=== PATIENT | female | born 1960 | race Caucasian/White ===

== ENCOUNTER 2022-12-19 12:15 | Emergency (ER) | payer OTHER ==
--- OUTSIDE RECORDS SUMMARY | 2022-12-19 12:18 | XMS REPORT | Continuity of Care Document ---
:1960 Author Organization [facility] t Address [address] [place] [address] Care Team Providers Name Role Phone [phone] Attending Clinician Unavailable [phone] Admitting Clinician Unavailable Problems This patient has no known problems. Allergies, Adverse Reactions, Alerts This patient has no known allergies or adverse reactions. Medications This patient has no known medications. Procedures This patient has no known procedures. Encounters Start End Encounter Admission Attending Care Care Encounter Source Date/Time Date/Time Type Type Clinicians Facility Department ID 2021-03-13 Outpatient 3 [id number] [facility] [id number] [facility] 11:12[facility] 2021-03-13 Outpatient 3 [id number] [facility] RE[facility] [id number] [facility] 11[facility]12:[facility] Results This patient has no known results.
[2022-12-19 13:58] LABS: SARS-CoV-2 Antigen Rapid Res Negative (Negative)
[2022-12-19 14:30] LABS: Absolute Lymphocytes (CBC) 1.5 K/uL (0.7-4.9); Hematocrit 40.3 % (36.0-45.0); Lymphocytes % 17.5 % (15.3-44.8); MCV 93.2 fL (80-100); MPV 8.6 fL (7.6-11.3); Platelets 240 thou/uL (152-406); RBC Red Blood Cell Count 4.32 M/uL (3.86-4.86)
[2022-12-19 14:31] LABS: Protime INR 1.03
[2022-12-19] MEDS ORDERED: NA CHLORIDE 0.9% 500 ML ONE (14:32)
[2022-12-19 14:42] LABS: Albumin 3.6 g/dL (3.4-5.0); Bilirubin Direct 0.2 mg/dL (0-0.2); Bilirubin Indirect, Calculated 0.4 mg/dL (0.2-0.8); Bilirubin Total 0.6 mg/dL (0.2-1.0); Potassium 3.8 mEq/L (3.5-5.1); Protein, Total 7.8 g/dL (6.4-8.2)
[2022-12-19 14:52] LABS: Specific Gravity 1.015 (1.005-1.030); Urine Bacteria None Seen /HPF (<20); Urine Bilirubin NEGATIVE (Negative); Urine Blood Negative (Negative); Urine Clarity Clear (Clear); Urine Color Yellow (Yellow); Urine Glucose NEGATIVE (Negative); Urine Mucus Slight /HPF (None Seen); Urine Protein NEGATIVE (Negative); Urine RBC <5 /HPF (None Seen); Urine Urobilinogen Normal (Normal); Urine pH 6.5 (5.0-7.0)
--- NOTE | 2022-12-19 15:27 | RAD REPORT ---
EXAM DESCRIPTION: CT - Head C Spine Cap W Con - 12/19/2022 3:08 pm CLINICAL HISTORY: Trauma, head and neck injury. Chest, abdomen and pelvis pain. repeated falls, head, back pain COMPARISON: Head Brain Wo Cont dated 06/03/2022; CT ABDOMEN PELVIS WO CONTRAST dated 05/13/2014 TECHNIQUE: CT head without contrast. CT cervical spine without contrast with coronal and sagittal reformatted images. CT chest, abdomen and pelvis with coronal and sagittal reformatted images of the spine. All CT scans are performed using dose optimization technique as appropriate and may include automated exposure control or mA/KV adjustment according to patient size. FINDINGS: CT HEAD WITHOUT CONTRAST: No intracranial hemorrhage, hydrocephalus or extra-axial fluid collection. No acute large vascular te rritory infarct. Remote left frontal and left parietal lobe small cortical infarcts are chronic. The paranasal sinuses and mastoids are clear. The calvarium is intact. CT CERVICAL SPINE WITHOUT CONTRAST: No fracture or subluxation. The prevertebral soft tissues are normal in thickness.Left carotid artery stent. Multilevel degenerat isaias changes are present in the spine. CT CHEST, ABDOMEN, PELVIS: Thorax: Chest Wall: Heterogeneous, multinodular thyroid. Lungs: Diffuse ground glass attenuation the lungs likely due to hypoventilation. Pleura: No effusions or pneumothorax. Mireya/Mediastinum: No lymphadenopathy. Aorta/Pulmonary Arteries: Unremarkable Heart: Normal size. Abdomen/Pelvis: Liver: No acute abnormality or suspicious lesions. Biliary: No biliary ductal dilatation. Cholecystectomy Stomach: No significant focal abnormality. Duodenum: No significant focal abnormality. Pancreas: Atrophic pancreas with generalized low attenuation. No pancreatic ductal dilatation. Spleen: No significant abnormality. Adrenal: No suspicious lesions. Kidney/ureter: No hydronephrosis. No renal calculi. Retroperitoneum: No retroperitoneal adenopathy. Vascular: No aneurysm. Bowel: No significant focal abnormality. Peritoneum: No ascites or free air. Bladder: Grossly unremarkable. Reproductive: Hysterectomy. Bones: Acute L4 compression fracture with less than 20% loss of height anteriorly. T12 compression fr acture with less than 20% loss of height appears chronic. Grade 1 anterolisthesis of L4 on L5. Other: n/a IMPRESSION: 1. Acute or subacute L4 compression fracture with less than 20% loss of height. Chronic appearing T12 compression fracture. No other evidence of significant trauma to the chest, abdomen, or pelvis. 2. No acute intracranial abnormality. Small remote left frontal and parietal lobe cortical infarcts. 3. No fracture or traumatic malalignment cervical spine.
--- NOTE | 2022-12-19 15:55 | EDPHYS ---
Physician Documentation [facility] Name: Catalina Uribe Age: 62 yrs Sex: Female : 1960 Arrival Date: 12/19/2022 Time: 12:15 Bed 19 Private MD: ED Physician Samuel Soto HPI: 12/19 13:41 This 62 yrs old Female presents to ER via Wheelchair with complaints of Back Pain, Fall rn Injury. 13:41 The patient presents with pain and an injury. The symptoms are located in the thoracic rn area. The pain does not radiate. Associated signs and symptoms: Pertinent positives: Generalized weakness and malaise. Modifying factors: The patient symptoms are alleviated by nothing, the patient symptoms are aggravated by any movement. Severity of symptoms: At their worst the symptoms were moderate, in the emergency department the symptoms are unchanged. The patient has experienced similar episodes in the past. Patient reports stroke 1 year ago, has had a few issues since then but over the last few weeks repeated falls. Last fall was about a week ago and fell onto her back with mid to upper back pain. Reports falls are happening so frequently she is scared to ambulate and get up and family is concerned that she is not deconditioned. Not eating or drinking well. Also reports had to stop Bactrim before completion of prescription due to side effects, was diagnosed with UTI at the time. No other medication changes.. Historical: - Allergies: 13:03 Sulfa (Sulfonamide Antibiotics); iw - PMHx: 12:56 Hypertensive disorder; stroke; iw - Immunization history:: Adult Immunizations unknown. - Family history:: not pertinent. - Social history:: Smoking status: unknown. - Hospitalizations: : No recent hospitalization is reported. ROS: 13:41 Constitutional: Negative for fever, chills, and weight loss, Eyes: Negative for injury, rn pain, redness, and discharge, Neck: Negative for injury, pain, and swelling, Cardiovascular: Negative for chest pain, palpitations, and edema, Respiratory: Negative for shortness of breath, cough, wheezing, and pleuritic chest pain, Abdomen/GI: Negative for abdominal pain, nausea, vomiting, diarrhea, and constipation, Back: Positive for back pain : Negative for injury, bleeding, discharge, and swelling, MS/Extremity: Negative for injury and deformity, Skin: Negative for injury, rash, and discoloration, Neuro: Positive for generalized weakness Exam: 13:41 Constitutional: This is a well developed, well nourished patient who is awake, alert, rn appears weak Head/Face: Normocephalic, atraumatic. Eyes: Pupils equal round and reactive to light, extra-ocular motions intact. ENT: Dry mucous membranes Neck: No midline cervical tenderness. No Meningismus. Cardiovascular: Regular rate and rhythm. No pulse deficits. Respiratory: No increased work of breathing, no retractions or nasal flaring. Abdomen/GI: Soft, non-tender Back: Lower thoracic and upper lumbar paraspinal tenderness. MS/ Extremity: Pulses equal, no cyanosis. Neuro: Awake and alert, GCS 15, 4/5 strength throughout. Sensation intact. No facial droop. Vital Signs: 13:04 BP 100 / 76; Pulse 98; Resp 18; Temp 98.8; Pulse Ox 98% on R/A; Weight 88.45 kg; Height iw 5 ft. 6 in. ; Pain 9/10; 14:00 BP 109 / 61; Pulse 77; Resp 16; Pulse Ox 100% on R/A; db 15:30 BP 113 / 63; Pulse 79; Resp 16; Pulse Ox 96% on R/A; db 16:00 BP 107 / 66; Pulse 71; Resp 16; Pulse Ox 98% on R/A; db 13:04 Body Mass Index 31.47 (88.45 kg, 167.64 cm) iw 13:04 Pain Scale: Adult iw MDM: 12:45 Patient medically screened. rn 15:51 Differential diagnosis: arthritis, chronic back pain, Fatigue Fracture Osteoarthritis rn vertebral fracture, UTI, dehydration, stroke. Data reviewed: vital signs, nurses notes, lab test result(s), EKG, radiologic studies, CT scan, and as a result, I will discharge patient. Counseling: I had a detailed discussion with the patient and/or guardian regarding the historical points, exam findings, and any diagnostic results supporting the discharge/admit diagnosis, lab results, radiology results, the need for outpatient follow up, to return to the emergency department if symptoms worsen or persist or if there are any questions or concerns that arise at home. Response to treatment: the patient's symptoms have mildly improved after treatment, and as a result, I will discharge patient. Special discussion: I discussed with the patient/guardian in detail that at this point there is no indication for admission to the hospital. It is understood, however, that if the symptoms persist or worsen the patient needs to return immediately for re-evaluation. Based on the history and exam findings, there is no indication for further emergent testing or inpatient evaluation. I discussed with the patient/guardian the need to see the neurologist for further evaluation of the symptoms. I discussed with the patient/guardian the need to see the primary care provider for further evaluation of the symptoms. ED course: CT shows subacute thoracic and lumbar fractures, nonoperative. Also showed multiple frontal strokes which explain her symptoms lately. Explained all this to patient and family and everything makes sense. Blood pressure improved with fluids. No indication for emergent admission at this time and family agrees. I have personally reviewed all of the results, including but not limited to blood tests and imaging deemed necessary to safely discharge this patient at this time. All results given to and printed out for patient. I personally went over all the results with the patient and answered all questions. Patient will follow-up with PCP and or specialist as discussed. Return precautions given and understood.. 12/19 12:52 Order name: CBC with Diff; Complete Time: 15:22 12/19 12:52 Order name: Basic Metabolic Panel; Complete Time: 15:22 12/19 12:52 Order name: Protime (+inr); Complete Time: 15:22 12/19 12:52 Order name: Ptt, Activated; Complete Time: 15:22 12/19 12:52 Order name: Urinalysis w/ reflexes; Complete Time: 15:22 12/19 12:52 Order name: LFT's; Complete Time: 15:22 12/19 12:53 Order name: SARS RAPID; Complete Time: 15:22 12/19 12:52 Order name: CT Traumagram (Head C Spine CAP W Con); Complete Time: 15:33 12/19 12:52 Order name: IV Start; Complete Time: 14:15 iw Administered Medications: 14:20 Drug: NS 0.9% IV 500 ml IV at bolus once Route: IV; Rate: bolus; Site: right db antecubital; 16:15 Follow up: IV Status: Completed infusion; IV Intake: 500ml db Disposition Summary: 12/19/22 15:54 Discharge Ordered Notes: Location: Home rn Problem: new rn Symptoms: have improved rn Condition: Stable rn Diagnosis - Wedge compression fracture of unspecified lumbar vertebra - L4 rn - Wedge compression fracture of T11-T12 vertebra rn - Dehydration rn - Weakness rn Followup: rn - With: Milo Arevalo MD - When: As needed - Reason: Recheck today's complaints, Re-evaluation by your physician Discharge Instructions: - Discharge Summary Sheet rn - Spinal Compression Fracture rn - Dehydration, Adult rn - Weakness rn - Deconditioning rn Forms: - Medication Reconciliation Form rn - Thank You Letter rn - Antibiotic operations intern - Prescription Opioid Use rn - Patient Portal Instructions rn - Leadership Thank You Letter rn Prescriptions: - acetaminophen-codeine 300-30 mg Oral tablet - take 1 tablet ORAL route every 12 hours As needed as needed for pain; 12 rn tablet; Refills: 0, Product Selection Permitted Signatures: Dispatcher [employer] Loly Rich RN RN Samuel Patel MD MD rn Benton, Danielle, RN RN db
--- NOTE | 2022-12-19 15:55 | ER ---
Nurse's Notes [facility] Name: Catalina Uribe Age: 62 yrs Sex: Female : 1960 Arrival Date: 12/19/2022 Time: 12:15 Bed 19 Private MD: Diagnosis: Wedge compression fracture of unspecified lumbar vertebra-L4;Wedge compression fracture of T11-T12 vertebra;Dehydration;Weakness Presentation: 12/19 12:55 Coronavirus screen: At this time, the client does not indicate any symptoms associated iw with coronavirus-19. Ebola Screen: Patient negative for fever greater than or equal to 101.5 degrees Fahrenheit, and additional compatible Ebola Virus Disease symptoms Patient denies exposure to infectious person. Patient denies travel to an Ebola-affected area in the 21 days before illness onset. No symptoms or risks identified at this time. Initial Sepsis Screen: Does the patient meet any 2 criteria? No. Patient's initial sepsis screen is negative. Does the patient have a suspected source of infection? No. Patient's initial sepsis screen is negative. Risk Assessment: Do you want to hurt yourself or someone else? Patient reports no desire to harm self or others. 12:55 Method Of Arrival: Wheelchair iw 12:55 Acuity: JONY 3 iw 12:57 Chief complaint: Patient states: multiple falls over past few weeks. iw Historical: - Allergies: 13:03 Sulfa (Sulfonamide Antibiotics); iw - PMHx: 12:56 Hypertensive disorder; stroke; iw - Immunization history:: Adult Immunizations unknown. - Family history:: not pertinent. - Social history:: Smoking status: unknown. - Hospitalizations: : No recent hospitalization is reported. Screenin:15 [facility] ED Fall Risk Assessment (Adult) History of falling in the last 3 months, db including since admission No falls in past 3 months (0 pts) Confusion or Disorientation No (0 pts) Intoxicated or Sedated No (0 pts) Impaired Gait No (0 pts) Mobility Assist Device Used No (0 pt) Altered Elimination No (0 pt) Score/Fall Risk Level 0 - 2 = Low Risk Oriented to surroundings, Maintained a safe environment. Abuse screen: Denies threats or abuse. Denies injuries from another. Nutritional screening: No deficits noted. Tuberculosis screening: No symptoms or risk factors identified. Assessment: 13:00 Reassessment: Patient appears in no apparent distress at this time. Patient and/or db family updated on plan of care and expected duration. Pain level reassessed. Patient is alert, oriented x 3, equal unlabored respirations, skin warm/dry/pink. General: Appears in no apparent distress. comfortable, Behavior is calm, cooperative. Pain: Complains of pain in back and thoracic area. Neuro: Level of Consciousness is awake, alert, obeys commands, Oriented to person, place, time, situation. Respiratory: Airway is patent Respiratory effort is even, unlabored, Respiratory pattern is regular, symmetrical. 14:00 Reassessment: Patient appears in no apparent distress at this time. Patient and/or db family updated on plan of care and expected duration. Pain level reassessed. Patient is alert, oriented x 3, equal unlabored respirations, skin warm/dry/pink. 15:00 Reassessment: Patient appears in no apparent distress at this time. Patient and/or db family updated on plan of care and expected duration. Pain level reassessed. Patient is alert, oriented x 3, equal unlabored respirations, skin warm/dry/pink. 16:00 Reassessment: Patient appears in no apparent distress at this time. Patient and/or db family updated on plan of care and expected duration. Pain level reassessed. Patient is alert, oriented x 3, equal unlabored respirations, skin warm/dry/pink. Patient states feeling better. Vital Signs: 13:04 BP 100 / 76; Pulse 98; Resp 18; Temp 98.8; Pulse Ox 98% on R/A; Weight 88.45 kg; Height iw 5 ft. 6 in. ; Pain 9/10; 14:00 BP 109 / 61; Pulse 77; Resp 16; Pulse Ox 100% on R/A; db 15:30 BP 113 / 63; Pulse 79; Resp 16; Pulse Ox 96% on R/A; db 16:00 BP 107 / 66; Pulse 71; Resp 16; Pulse Ox 98% on R/A; db 13:04 Body Mass Index 31.47 (88.45 kg, 167.64 cm) iw 13:04 Pain Scale: Adult iw ED Course: 12:19 Patient arrived in ED. ts1 12:45 Samuel Soto MD is Attending Physician. rn 12:55 Triage completed. iw 12:55 Arm band placed on. iw 13:39 SARS RAPID Sent. jr12 13:47 Patty Seals, RN is Primary Nurse. db 13:56 Missed attempt(s): 22 gauge in right wrist. Bleeding controlled, band aid applied, db catheter tip intact. 14:16 Inserted saline lock: 22 gauge in right antecubital area, using aseptic technique. em1 Blood collected. 15:10 CT Traumagram (Head C Spine CAP W Con) In Process Unspecified. EDMS 15:35 Patient placed in an exam room. db 15:53 Milo Arevalo MD is Referral Physician. rn 16:15 Patient has correct armband on for positive identification. Bed in low position. Call db light in reach. Side rails up X 1. Provided Education on: DISCHARGE. Pulse ox on. NIBP on. Warm blanket given. 16:15 No provider procedures requiring assistance completed. IV discontinued, intact, db bleeding controlled, No redness/swelling at site. Administered Medications: 14:20 Drug: NS 0.9% IV 500 ml IV at bolus once Route: IV; Rate: bolus; Site: right db antecubital; 16:15 Follow up: IV Status: Completed infusion; IV Intake: 500ml db Medication: 16:15 VIS not applicable for this client. db Intake: 16:15 IV: 500ml; Total: 500ml. db Outcome: 15:54 Discharge ordered by MD. rn 16:15 Discharged to home via wheelchair, with family, db 16:15 Condition: stable 16:15 Discharge instructions given to patient, family, Instructed on discharge instructions, follow up and referral plans. Prescriptions given X 1, 16:24 Patient left the ED. db Signatures: Dispatcher [employer] EDMS Loly Pratt, LOIS RN iw Samuel Soto MD MD rn Martinez, Eric em1 Patty Seals, RN RN db Carolin Allen PAS PAS ts1 Claudia Simon jr12 Corrections: (The following items were deleted from the chart) 16:22 14:00 Reassessment: Patient appears in no apparent distress at this time. Patient db and/or family updated on plan of care and expected duration. Pain level reassessed. Patient is alert, oriented x 3, equal unlabored respirations, skin warm/dry/pink. Patient states feeling better. db
[2022-12-19 16:31] VITALS: TEMP 98.8
[2022-12-19 16:36] VITALS: BP 107/66; O2SAT 98
== END 2022-12-19 16:24 | disposition home or self-care (01) ==
LOC: ER 12:15
DX: S32.040A Wedge compression fracture of fourth lumbar vertebra, initial encounter for closed fracture (principal); S22.080A Wedge compression fracture of T11-T12 vertebra, initial encounter for closed fracture; E86.0 Dehydration; I10 Essential (primary) hypertension; Z11.52 Encounter for screening for COVID-19; Z88.2 Allergy status to sulfonamides
CPT/HCPCS: 96361; 85025; 81001; 80048; 36415; 85610; 80076; 85730; 70450; 72125; 71260; 74177; 96360; 99284; 87811; Q9967; J7040

== ENCOUNTER 2024-01-06 12:34 | Emergency (ER) | payer OTHER ==
--- OUTSIDE RECORDS SUMMARY | 2024-01-06 12:36 | XMS REPORT | Continuity of Care Document ---
Author Name Unknown Address [address] [place] [address] [facility] Address [address] [place] [address] [place] [address] Care Team Providers Care Needle Loom Weaver Name Role Phone [phone] Attending Clinician Unavailable [phone] Admitting Clinician Unavailable Encounters Start Date/Time End Date/Time Encounter Type Admission Type Attending Clinicians Care Facility Care Department Encounter ID Source 2021-03-13 11:12:40 Outpatient 3 [id number] [facility] REF [id number] 1221 [facility] 2021-03-13 11:12:32 Outpatient 3 [id number] [facility] REF [id number] [id number] [facility]
[2024-01-06] MEDS ORDERED: MORPHINE 2 MG/ML SYR ONE (13:18)
[2024-01-06] MEDS ORDERED: NA CHLORIDE 0.9% 1,000 ML ONE (13:18)
[2024-01-06] MEDS ORDERED: ONDANSETRON 4 MG/2 ML VIAL ONE (13:19)
[2024-01-06 13:29] LABS: Absolute Basophils 0.1 K/uL (0-0.5); Absolute Eosinophils 0.1 K/uL (0-0.5); Absolute Lymphocytes (CBC) 1.4 K/uL (0.7-4.9); Absolute Monocytes 0.5 K/uL (0.1-1.3); Absolute Neutrophil 5.3 K/uL (1.8-8.0); Basophils % 0.8 % (0-1.3); Hematocrit 34.3 % (36.0-45.0); Hemoglobin 11.6 g/dL (12.0-15.0); Lymphocytes % 19.3 % (15.3-44.8); MCH 31.9 pg (27.0-35.0); MCHC 33.9 g/dL (32.0-36.0); MPV 8.5 fL (7.6-11.3); Monocytes % 7.4 % (3.3-12.3); Neutrophils % 71.5 % (41.7-73.7); Platelets 241 thou/uL (152-406); RBC Red Blood Cell Count 3.65 M/uL (3.86-4.86)
[2024-01-06 13:32] LABS: PT Prothrombin Time 13.5 SECONDS (9.4-12.5); Protime INR 1.21
--- NOTE | 2024-01-06 13:43 | RAD REPORT ---
EXAMINATION: ONE VIEW CHEST XR CLINICAL INDICATION: ABDOMINAL DISTENTION TECHNIQUE: Frontal chest projection is submitted. Examination is limited by patient positioning and t echnique. COMPARISON: 07/03/2023 FINDINGS: The lungs are well inflated and clear. The heart is upper limit of normal in size. No displaced fract ures identified. IMPRESSION: No acute intrathoracic abnormalities.
[2024-01-06 14:30] LABS: ALT/SGPT 48 U/L (13-56); AST/SGOT 106 U/L (15-37); Albumin 3.1 g/dL (3.4-5.0); Albumin/Globulin Ratio 0.9 (1.1-1.8); Alkaline Phosphatase 70 U/L (45-117); Anion Gap 11.4 mEq/L (5.0-15.0); BUN Blood Urea Nitrogen 13 mg/dL (7-18); Bicarbonate 20 mEq/L (21-32); Bilirubin Total 0.5 mg/dL (0.2-1.0); Globulin 3.3 g/dL (2.3-3.5); Glomerular Filtration Rate 64 ml/min (=/>90); Glucose Level 88 mg/dL (74-106); Lipase 14 U/L (13-75); Magnesium 1.7 mg/dL (1.6-2.4); NT PRO-BNP 131 pg/mL (<125); Potassium 3.4 mEq/L (3.5-5.1); Protein, Total 6.4 g/dL (6.4-8.2); Sodium Level 139 mEq/L (136-145); Troponin High Sensitivity 9.5 pg/mL (<58.9)
[2024-01-06 14:33] LABS: Bilirubin Direct < 0.2 mg/dL (0-0.2); Bilirubin Indirect, Calculated 0.3 mg/dL (0.2-0.8)
[2024-01-06] MEDS ORDERED: MUPIROCIN 2% OINT 22GM TUBE TOP ONE (15:55)
--- NOTE | 2024-01-06 16:03 | RAD REPORT ---
EXAMINATION: CT ABDOMEN AND PELVIS WITH CONTRAST CLINICAL INDICATION: RECTAL PAIN;Abd pain TECHNIQUE: CT abdomen and pelvis was performed, after the administration of IV contrast, as per [facility] protocol. Axial, sagittal and coronal reconstructions were obtained. One or more of the following dose reduction techniques were used: Automated exposure control, adjustment of the mA and k V according to patient size, and iterative reconstruction. Unless otherwise specified, incidental findings do not require dedicated imaging follow-up. COMPARISON: No prior exam. FINDINGS: LOWER CHEST: The visualized lung bases are clear. LIVER: Normal in size and contour. No focal lesion. Cholecystectomy clips. SPLEEN: Normal size. No focal lesion. PANCREAS: No mass, ductal dilation, or jimmy-pancreatic fluid. ADRENALS: Normal; no mass. KIDNEYS: Normal size and contour. No hydronephrosis. GASTROINTESTINAL TRACT: No evidence of free air, significant intra-abdominal free fluid, bowel obstru ction or abscess. APPENDIX: Normal appendix. LYMPH NODES: No lymphadenopathy. MUSCULOSKELETAL: Moderate multilevel spinal degenerative changes. 7 mm degenerative anterolisthesis L 4 on 5. Mild anterior wedging T12 and L4, likely chronic. ADDITIONAL FINDINGS: None. IMPRESSION: No acute or concerning abnormalities seen in the abdomen or pelvis.
--- NOTE | 2024-01-06 16:15 | ER ---
Nurse's Notes [facility] Name: Catalina Uribe Age: 63 yrs Sex: Female : 1960 Arrival Date: 01/06/2024 Time: 12:34 Bed 5 Private MD: Diagnosis: Diarrhea, unspecified;Other skin changes-SMALL RIGHT SUPERFICAL BUTTOCK ULCER;Other specified diseases of anus and rectum-PAIN Presentation: 01/05 12:59 Chief complaint: Patient states: sores on bottom x10 days, PCP said it was an tm6 infection, was given antibiotics, still having pain and diarrhea. Coronavirus screen: Client denies travel out of the [place] in the last 14 days. Ebola Screen: Patient negative for fever greater than or equal to 101.5 degrees Fahrenheit, and additional compatible Ebola Virus Disease symptoms Patient denies exposure to infectious person. Patient denies travel to an Ebola-affected area in the 21 days before illness onset. No symptoms or risks identified at this time. Initial Sepsis Screen: Does the patient meet any 2 criteria? RR > 20 per min. Does the patient have a suspected source of infection? No. Patient's initial sepsis screen is negative. Risk Assessment: Do you want to hurt yourself or someone else? Patient reports no desire to harm self or others. Onset of symptoms was December 27, 2023. 12:59 Method Of Arrival: Wheelchair tm6 12:59 Acuity: JONY 3 tm6 Triage Assessment: 13:01 General: Appears distressed, uncomfortable, Behavior is cooperative. Pain: Complains of tm6 pain in buttocks Pain currently is 8 out of 10 on a pain scale. Pain began ten days ago. EENT: No signs and/or symptoms were reported regarding the EENT system. Neuro: Level of Consciousness is awake, alert, obeys commands, Oriented to person, place, time, situation. Cardiovascular: Patient's skin is warm and dry. Respiratory: Airway is patent Respiratory effort is even, Respiratory pattern is regular, symmetrical. GI: Abdomen is round Reports diarrhea. : No signs and/or symptoms were reported regarding the genitourinary system. Derm: Reports sores on gluteal folds. Musculoskeletal: No signs and/or symptoms reported regarding the musculoskeletal system. Historical: - Allergies: 13:01 Adhesives; tm6 13:01 PENICILLINS; tm6 13:01 SULFA SULFONAMIDE ANTIBIOTICS; tm6 - PMHx: 13:01 Hypertensive disorder; Cerebrovascular accident; Hypercholesterolemia; Gastroesophageal tm6 reflux disease; neuropathy; - PSHx: 13:01 Total abdominal hysterectomy; section; tm6 - Immunization history:: Client reports receiving the 2nd dose of the Covid vaccine, Flu vaccine is up to date. - Infectious Disease History:: Denies. - Social history:: Smoking status: Patient denies any tobacco usage or history of. - Family history:: not pertinent. Screenin:00 [facility] ED Fall Risk Assessment (Adult) History of falling in the last 3 months, jl7 including since admission No falls in past 3 months (0 pts) Confusion or Disorientation No (0 pts) Intoxicated or Sedated No (0 pts) Impaired Gait No (0 pts) Mobility Assist Device Used Yes (1 pt) Altered Elimination No (0 pt) Score/Fall Risk Level 0 - 2 = Low Risk Oriented to surroundings, Maintained a safe environment. 13:00 Abuse screen: Denies threats or abuse. Denies injuries from another. Nutritional jl7 screening: No deficits noted. Tuberculosis screening: No symptoms or risk factors identified. Assessment: 12:45 General: Appears in no apparent distress. uncomfortable, Behavior is calm, cooperative, jl7 appropriate for age. Pain: Complains of pain in buttocks Pain currently is 8 out of 10 on a pain scale. Neuro: Level of Consciousness is awake, alert, obeys commands, Oriented to person, place, time, situation. Cardiovascular: Patient's skin is warm and dry. Respiratory: Airway is patent Respiratory effort is even, unlabored, Respiratory pattern is regular, symmetrical. GI: Reports diarrhea, nausea. Derm: Skin is pink, warm \T\ dry. 14:00 Reassessment: Patient appears in no apparent distress at this time. Patient is alert, jl7 oriented x 3, equal unlabored respirations, skin warm/dry/pink. Patient is alert/active/playful, equal unlabored respirations, skin warm/dry/pink. pain improved, rated 3/10 at this time. 14:30 Derm: Decubitus located on sacrum approximately 2.6 cm to 7.5 cm. jl7 15:30 Reassessment: Patient appears in no apparent distress at this time. No changes from jl7 previously documented assessment. Patient and/or family updated on plan of care and expected duration. Pain level reassessed. Patient is alert, oriented x 3, equal unlabored respirations, skin warm/dry/pink. 16:00 Derm: Decubitus located on sacrum, wound covered with mupirocin and optiform wound jl7 dressing. 16:35 Reassessment: Pt awaiting transportation. jl7 Vital Signs: 12:59 BP 133 / 85; Pulse 86; Resp 22; Temp 98.5(O); Pulse Ox 99% on R/A; MAP 97 mmHg; Weight tm6 79.38 kg; Height 5 ft. 3 in. ; Pain 8/10; 14:15 BP 136 / 88; Pulse 88; Resp 15; Pulse Ox 100% ; jl7 12:59 Body Mass Index 31.00 (79.38 kg, 160.02 cm) tm6 12:59 Pain Scale: Adult 6 ED Course: 12:36 Patient arrived in ED. mr 12:39 Faustino Canseco MD is Attending Physician. [facility] 13:00 Triage completed. tm6 13:00 Provided Education on: use if call zimmer. jl7 13:00 No provider procedures requiring assistance completed. jl7 13:01 Arm band placed on right wrist. tm6 13:02 Allergy band placed. tm6 13:24 Basic Metabolic Panel Sent. ss 13:24 CBC with Diff Sent. ss 13:24 LFT's Sent. ss 13:24 NT PRO-BNP Sent. ss 13:24 PT-INR Sent. ss 13:24 Troponin HS Sent. ss 13:24 Inserted saline lock: 22 gauge in right forearm, using aseptic technique. Blood ss collected. Flushed with 10 mL NS. 13:28 Adry Benitez, RN is Primary Nurse. jl7 13:40 XRAY Chest (1 view) In Process Unspecified. EDMS 15:49 CT Abd/Pelvis - IV Contrast Only In Process Unspecified. EDMS 16:15 Francisco Sewell MD is Referral Physician. [facility] 17:09 IV discontinued, intact, bleeding controlled, No redness/swelling at site. Pressure jl7 dressing applied. Administered Medications: 13:28 Drug: morphine IVP or IV 2 mg IVP once over 4 mins Route: IVP; Infused Over: 4 mins; jl7 Site: right forearm; 14:00 Follow up: Response: No adverse reaction; Pain is decreased jl7 13:28 Drug: Ondansetron IVP 4 mg IVP once; over 2 minutes Route: IVP; Site: right forearm; jl7 15:25 Follow up: Response: No adverse reaction jl7 13:28 Drug: NS 0.9% IV 1000 ml IV at 1000 ml once; to be given as a bolus over 60 minutes jl7 Route: IV; Rate: 1000 ml; Site: right forearm; 15:25 Follow up: Response: No adverse reaction; IV Status: Completed infusion; IV Intake: jl7 1000ml 16:24 Drug: Mupirocin Topical Ointment 2 % 1 application Topical once Route: Topical; Site: jl7 affected area; 16:51 Follow up: Response: No adverse reaction jl7 16:40 Drug: Ciprofloxacin PO 500 mg PO once Route: PO; jl7 16:51 Follow up: Response: No adverse reaction jl7 16:41 Not Given (Patient Refused): morphineor iv 2 mg IVP once over 4 mins jl7 16:41 Drug: Potassium PO Effervescent Tablet 25 mEq PO once; dissolve in 4 ounces of water or jl7 juice Route: PO; 16:51 Follow up: Response: No adverse reaction jl7 Medication: 15:30 VIS not applicable for this client. jl7 Intake: 15:25 IV: 1000ml; Total: 1000ml. jl7 Outcome: 16:15 Discharge ordered by . jay 17:08 Discharged to home ambulatory, with family, 7 17:08 Condition: stable 17:08 Discharge instructions given to patient, Instructed on discharge instructions, follow up and referral plans. medication usage, Demonstrated understanding of instructions, follow-up care, medications, Prescriptions given X 3, 17:09 Patient left the ED. jl7 Signatures: Dispatcher [employer] EDMS Faustino Canseco MD MD cha Rivera, Mary, Reg Reg mr Manasa Salvador, Adry Aguila RN, RN RN 7 Edvin Jones RN RN tm6 Corrections: (The following items were deleted from the chart) 16:52 13:28 morphine IVP or IV 2 mg IVP in right antecubital over 4 mins jl7 jl7 16:53 13:28 NS 0.9% IV 1000 ml IV at 1000 ml in right antecubital jl7 jl7 16:53 13:28 Ondansetron IVP 4 mg IVP in right antecubital jl7 jl7
--- NOTE | 2024-01-06 16:15 | EDPHYS ---
Physician Documentation [facility] Name: Catalina Uribe Age: 63 yrs Sex: Female : 1960 Arrival Date: 01/06/2024 Time: 12:34 Bed 5 Private MD: JOSAFAT Physician Faustino Canseco HPI: 01/05 15:46 This 63 yrs old Female presents to ER via Wheelchair with complaints of Skin jay Sore(s). 15:46 The patient presents to the emergency department with pain in the rectal area, that is jay moderate, that is severe. Onset: The symptoms/episode began/occurred 2 day(s) ago. Context: the patient has no known special context relating to the rectal area complaint(s). RECTAL PAIN, SKIN BREAK DOWN. Modifying factors: The symptoms are alleviated by remaining still, sitz baths, The symptoms are aggravated by sitting position. Associate signs and symptoms: Pertinent positives: diarrhea. Severity of symptoms: At their worst the symptoms were moderate in the emergency department the symptoms are unchanged. The patient has experienced similar episodes in the past, a few times. Historical: - Allergies: 13:01 Adhesives; tm6 13:01 PENICILLINS; tm6 13:01 SULFA SULFONAMIDE ANTIBIOTICS; tm6 - PMHx: 13:01 Hypertensive disorder; Cerebrovascular accident; Hypercholesterolemia; Gastroesophageal tm6 reflux disease; neuropathy; - PSHx: 13:01 Total abdominal hysterectomy; section; tm6 - Immunization history:: Client reports receiving the 2nd dose of the Covid vaccine, Flu vaccine is up to date. - Infectious Disease History:: Denies. - Social history:: Smoking status: Patient denies any tobacco usage or history of. - Family history:: not pertinent. ROS: 15:46 Constitutional: Negative for fever, chills, and weight loss, Eyes: Negative for injury, jay pain, redness, and discharge, ENT: Negative for injury, pain, and discharge, Neck: Negative for injury, pain, and swelling, Cardiovascular: Negative for chest pain, palpitations, and edema, Respiratory: Negative for shortness of breath, cough, wheezing, and pleuritic chest pain, Back: Negative for injury and pain, : Negative for injury, bleeding, discharge, and swelling, MS/Extremity: Negative for injury and deformity, Neuro: Negative for headache, weakness, numbness, tingling, and seizure, Psych: Negative for depression, anxiety, suicide ideation, homicidal ideation, and hallucinations, Allergy/Immunology: Negative for hives, rash, and allergies, Endocrine: Negative for neck swelling, polydipsia, polyuria, polyphagia, and marked weight changes, Hematologic/Lymphatic: Negative for swollen nodes, abnormal bleeding, and unusual bruising, 15:46 Abdomen/GI: Positive for diarrhea, rectal pain, Exam: 15:46 Constitutional: This is a well developed, well nourished patient who is awake, alert, jay and in no acute distress. Head/Face: Normocephalic, atraumatic. Eyes: Pupils equal round and reactive to light, extra-ocular motions intact. Lids and lashes normal. Conjunctiva and sclera are non-icteric and not injected. Cornea within normal limits. Periorbital areas with no swelling, redness, or edema. ENT: Nares patent. No nasal discharge, no septal abnormalities noted. Tympanic membranes are normal and external auditory canals are clear. Oropharynx with no redness, swelling, or masses, exudates, or evidence of obstruction, uvula midline. Mucous membranes moist. Neck: Trachea midline, no thyromegaly or masses palpated, and no cervical lymphadenopathy. Supple, full range of motion without nuchal rigidity, or vertebral point tenderness. No Meningismus. Chest/axilla: Normal chest wall appearance and motion. Nontender with no deformity. No lesions are appreciated. Cardiovascular: Regular rate and rhythm with a normal S1 and S2. No gallops, murmurs, or rubs. Normal PMI, no JVD. No pulse deficits. Respiratory: Lungs have equal breath sounds bilaterally, clear to auscultation and percussion. No rales, rhonchi or wheezes noted. No increased work of breathing, no retractions or nasal flaring. Back: No spinal tenderness. No costovertebral tenderness. Full range of motion. Female : Normal external genitalia. MS/ Extremity: Pulses equal, no cyanosis. Neurovascular intact. Full, normal range of motion. Neuro: Awake and alert, GCS 15, oriented to person, place, time, and situation. Cranial nerves II-XII grossly intact. Motor strength 5/5 in all extremities. Sensory grossly intact. Cerebellar exam normal. Normal gait. Psych: Awake, alert, with orientation to person, place and time. Behavior, mood, and affect are within normal limits. 15:46 Abdomen/GI: Inspection: abdomen appears normal, Bowel sounds: hyperactive, in all quadrants, Palpation: soft, nontender, Rectal exam: rectal tone normal, hemorrhoid(s), are not appreciated, mass, is not appreciated, swelling, that is mild, tenderness, that is mild, fecal impaction, is not appreciated, Liver: no appreciated palpable abnormalities, Hernia: not appreciated, 15:46 Skin: injury, RIGHT BUTTOCK ULCER, Vital Signs: 12:59 BP 133 / 85; Pulse 86; Resp 22; Temp 98.5(O); Pulse Ox 99% on R/A; MAP 97 mmHg; Weight tm6 79.38 kg; Height 5 ft. 3 in. ; Pain 8/10; 14:15 BP 136 / 88; Pulse 88; Resp 15; Pulse Ox 100% ; jl7 12:59 Body Mass Index 31.00 (79.38 kg, 160.02 cm) tm6 12:59 Pain Scale: Adult tm6 MDM: 12:39 Medical Screening Exam initiated jay 15:53 Differential diagnosis: hemorrhoids, fissure, abscess, pilonidal cyst, condyloma. [facility] Differential Diagnosis sepsis. Data reviewed: vital signs, nurses notes, lab test result(s), radiologic studies, CT scan. Consideration of Admission/Observation Escalation of care including admission/observation considered. Independent interpretation of the following test(s) in the Emergency Department CT Scan: My interpretation is CT AB/ PEL. Test considered but Not performed: Ultrasound ABD USG. Historians other than the Patient: Daughter/Son: DAUGHTER WELL INFORMED. Care significantly affected by the following chronic conditions: Hypertension, Obesity, CVA, GERD. 01/05 12:51 Order name: Basic Metabolic Panel; Complete Time: 14:53 [facility] 01/05 12:51 Order name: CBC with Diff; Complete Time: 14:53 [facility] 01/05 12:51 Order name: LFT's; Complete Time: 14:53 [facility] 01/05 12:51 Order name: Magnesium; Complete Time: 14:53 [facility] 01/05 12:51 Order name: NT PRO-BNP; Complete Time: 14:53 [facility] 01/05 12:51 Order name: PT-INR; Complete Time: 14:53 [facility] 01/05 12:51 Order name: Troponin HS; Complete Time: 14:53 [facility] 01/05 12:51 Order name: Lipase; Complete Time: 14:53 [facility] 01/05 12:51 Order name: XRAY Chest (1 view); Complete Time: 14:53 [facility] 01/05 12:51 Order name: CT Abd/Pelvis - IV Contrast Only; Complete Time: 16:13 [facility] 01/05 12:51 Order name: Cardiac monitoring; Complete Time: 14:49 [facility] 01/05 12:51 Order name: EKG - Nurse/Tech; Complete Time: 14:49 [facility] 01/05 12:51 Order name: IV Saline Lock; Complete Time: 13:24 [facility] 01/05 12:51 Order name: Labs collected and sent; Complete Time: 13:24 [facility] 01/05 12:51 Order name: O2 Per Protocol; Complete Time: 13:29 [facility] 01/05 12:51 Order name: O2 Sat Monitoring; Complete Time: 13:29 [facility] 01/05 13:37 Order name: Labs - recollect needed: please recollect chemistries; Complete Time: 13:55 em1 Administered Medications: 13:28 Drug: morphine IVP or IV 2 mg IVP once over 4 mins Route: IVP; Infused Over: 4 mins; jl7 Site: right forearm; 14:00 Follow up: Response: No adverse reaction; Pain is decreased jl7 13:28 Drug: Ondansetron IVP 4 mg IVP once; over 2 minutes Route: IVP; Site: right forearm; jl7 15:25 Follow up: Response: No adverse reaction jl7 13:28 Drug: NS 0.9% IV 1000 ml IV at 1000 ml once; to be given as a bolus over 60 minutes jl7 Route: IV; Rate: 1000 ml; Site: right forearm; 15:25 Follow up: Response: No adverse reaction; IV Status: Completed infusion; IV Intake: jl7 1000ml 16:24 Drug: Mupirocin Topical Ointment 2 % 1 application Topical once Route: Topical; Site: jl7 affected area; 16:51 Follow up: Response: No adverse reaction jl7 16:40 Drug: Ciprofloxacin PO 500 mg PO once Route: PO; jl7 16:51 Follow up: Response: No adverse reaction jl7 16:41 Not Given (Patient Refused): morphineor iv 2 mg IVP once over 4 mins jl7 16:41 Drug: Potassium PO Effervescent Tablet 25 mEq PO once; dissolve in 4 ounces of water or jl7 juice Route: PO; 16:51 Follow up: Response: No adverse reaction jl7 Disposition Summary: 01/06/24 16:15 Discharge Ordered Notes: Location: Home jay Problem: new jay Symptoms: have improved jay Condition: Stable jay Diagnosis - Diarrhea, unspecified jay - Other skin changes - SMALL RIGHT SUPERFICAL BUTTOCK ULCER jay - Other specified diseases of anus and rectum - PAIN jay Followup: jay - With: Private Physician - When: 2 - 3 days - Reason: Recheck today's complaints, Continuance of care, Re-evaluation by your physician Followup: jay - With: Francisco Sweell MD - When: 2 - 3 days - Reason: Recheck today's complaints, Re-evaluation by your physician Discharge Instructions: - Discharge Summary Sheet [facility] - Food Choices to Help Relieve Diarrhea, Adult jay - Diarrhea, Adult [facility] - How to Take a Sitz Bath jay - Diarrhea, Adult, [id number] [facility] Forms: - Medication Reconciliation Form [facility] - Antibiotic Education [facility] - Prescription Opioid Use [facility] - Patient Portal Instructions [facility] - Leadership Thank You Letter [facility] Prescriptions: - Centany 2 % Topical ointment - apply 1 application TOPICAL route 3 times per day; 15 application; Refills: 0, [facility] Product Selection Permitted - acetaminophen-codeine 300-30 mg Oral tablet - take 2 tablet ORAL route every 6 hours PRN PAIN; 20 tablet; Refills: 0, Product [facility] Selection Permitted - Cipro 500 mg Oral Tablet - take 1 tablet ORAL route every 12 hours for 7 days; 14 tablet; Refills: 0, [facility] Product Selection Permitted Signatures: Dispatcher [employer] EDMS Faustino Canseco MD MD cha Martinez, Eric em1 Adry Benitez RN RN jl7 Edvin Jones RN RN tm6 Corrections: (The following items were deleted from the chart) 12:52 12:52 Chest Single View+RAD.RAD.BRZ ordered. EDMS EDMS 12:52 12:52 Abdomen Pelvis W Con+CT.RAD.BRZ ordered. EDMS EDMS
[2024-01-06] MEDS ORDERED: CIPROFLOXACIN HCL 500 MG TAB ONE (16:27)
[2024-01-06] MEDS ORDERED: POTASSIUM 25 MEQ EFFERV TAB ONE (16:27)
[2024-01-06 20:05] VITALS: TEMP 98.5
[2024-01-06 20:10] VITALS: BP 136/88; O2SAT 100
--- NOTE | 2024-01-10 12:08 | EKG ---
Test Date: 2024-01-06 Test Time: 14:02:42 Plush Brusher: NOHEMI MEASUREMENT RESULTS: Intervals: Rate: 79 NE: 176 QRSD: 94 QT: 404 QTc: 463 [place]: P: 74 NE: 176 QRS: 67 T: 61 INTERPRETIVE STATEMENTS: Normal sinus rhythm Normal ECG Compared to ECG 07/03/2023 17:24:49 Myocardial infarct finding no longer present Electronically Signed On 01-10-24 12:03:18 [employer]LECTRO[employer] T[employer] FINISHER by Oleksandr Bragg
== END 2024-01-06 17:09 | disposition home or self-care (01) ==
LOC: ER 12:34
DX: R19.7 Diarrhea, unspecified (principal); L98.419 Non-pressure chronic ulcer of buttock with unspecified severity; K62.89 Other specified diseases of anus and rectum
CPT/HCPCS: 96361; 85025; 80048; 36415; 83735; 85610; 80076; 84484; 83690; 83880; 74177; 71045; 96375; 96374; 99284; Q9967; J2270; J2405; J7030; 93005